=== PATIENT | female | born 1975 | race Caucasian/White ===

== ENCOUNTER 2016-05-06 13:31 | Emergency (ER) | payer OTHER, BC ==
[~2016-05-06] VITALS: Ht 152.4 cm; Wt 68.0 kg
[~2016-05-06 13:31] MED LIST: BACTRIM PO; MTR600X PO; MULT-506 PO; OXYC5TAB PO
[2016-05-06 13:34] VITALS: TEMP 36.7; Ht 152.4 cm; Wt 68.0 kg
[2016-05-06] MEDS ORDERED: SPIR25TA PO (14:10)
[2016-05-06] MEDS ORDERED: ACETAMINOPHEN 500 MG TAB PO STA (14:49)
[2016-05-06] MEDS ORDERED: DIPHTHERIA/TETANUS/PERTUSSIS 0.5 ML SYR/VIAL IM. ONE (15:00)
[2016-05-06 15:37] VITALS: BP 141/95; PULSE 99; O2SAT 98
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
== END 2016-05-06 15:40 | disposition home or self-care (01) ==
LOC: EDBD 13:31 → C.EDD 13:33
DX: S40.811A Abrasion of right upper arm, initial encounter (principal); S40.812A Abrasion of left upper arm, initial encounter; S80.811A Abrasion, right lower leg, initial encounter; S80.812A Abrasion, left lower leg, initial encounter; V43.52XA Car driver injured in collision with other type car in traffic accident, initial encounter; Y92.410 Unspecified street and highway as the place of occurrence of the external cause; Z23 Encounter for immunization

== ENCOUNTER → 2017-02-21 | Outpatient (CLI) | payer BC ==
[~2017-02-21] MED LIST changes: -BACTRIM PO; -MTR600X PO; -OXYC5TAB PO; +SPIR25TA PO
--- NOTE | 2017-02-22 14:09 | MAMMOGRAPHY REPORT ---
BILATERAL FIRST EVER DIGITAL SCREENING MAMMOGRAM TOMOSYNTHESIS WITH CAD: 02/21/2017 CLINICAL HISTORY: Routine screening. Baseline exam. TECHNIQUE: Breast tomosynthesis in addition to standard 2D mammography was performed. Current study was also evaluated with a Computer Aided Detection (CAD) system. COMPARISON: No prior exams were available for comparison. BREAST COMPOSITION: The tissue of both breasts is heterogeneously dense, which may obscure small mas ses. FINDINGS: There is a conspicuous 7 mm nodular asymmetry in the superior posterior right breast, only seen on the MLO view. Although this could represent normal overlapping fibroglandular tissue, as no definite persistent mass is seen on the corresponding tomosynthesis images, additional spot compress ion tomosynthesis, true lateral views and possible ultrasound are recommended. No other suspicious mass, architectural distortion or cluster of microcalcifications is seen bilatera lly. IMPRESSION: ACR BI-RADS CATEGORY 0: INCOMPLETE EVALUATION: NEED ADDITIONAL IMAGING EVALUATION The 7 mm nodular asymmetry in the superior, posterior right breast on the MLO view needs additional e valuation. The patient will be called to schedule an appointment. Approximately 10% of breast cancers are not detected with mammography. A negative mammographic report should not delay biopsy if a clinically suggestive mass is present. Flor Jimenez M.D. ay/:02/21/2017 15:10:28 Personnel Psychologist: Wilmer RICE)([place]), [facility] letter sent: Addl Imaging 0 BI-RADS Code: ACR BI-RADS Category 0: Incomplete Evaluation: Need Additional Imaging Evaluation
== END | disposition home or self-care (01) ==
LOC: C.MAMM 08:36
PROVIDERS: ATTEND Obstetrics & Gynecology
DX: Z12.31 Encounter for screening mammogram for malignant neoplasm of breast (principal); N64.89 Other specified disorders of breast

== ENCOUNTER → 2017-03-08 | Outpatient (CLI) | payer BC, OTHER ==
--- NOTE | 2017-03-08 15:00 | MAMMOGRAPHY REPORT ---
UNILATERAL RIGHT DIGITAL DIAGNOSTIC MAMMOGRAM TOMOSYNTHESIS AND TARGETED RIGHT ULTRASOUND: 03/08/2017 CLINICAL HISTORY: 41-year-old woman called back from baseline screening mammogram for a 7 mm nodular asymmetry in the superior posterior right breast only seen on the MLO view. TECHNIQUE: Spot compression right MLO tomosynthesis and right MLO tomosynthesis views were obtained. COMPARISON: Comparison is made to exam dated: 02/21/2017 mammogram - [facility]. BREAST COMPOSITION: The tissue of the right breast is heterogeneously dense, which may obscure small masses. FINDINGS: The additional tomosynthesis views of the right breast demonstrate effacement of the 7 mm n odular asymmetry seen on the 2-D view from the screening mammogram performed 02/21/2017. No suspicio us mass, architectural distortion or cluster of microcalcifications is currently identified in the vi sualized right breast. Targeted ultrasound was performed through the superior right breast. Heterogeneous echotexture tissu e is seen without a discrete solid or cystic mass. IMPRESSION: ACR BI-RADS CATEGORY 2: BENIGN, TARGETED ULTRASOUND ACR BI-RADS CATEGORY 2: BENIGN Effacement of the 7 mm nodular asymmetry in the superior posterior right breast with additional suppl emental tomosynthesis images, and no suspicious sonographic correlate identified. This most likely r epresented normal overlapping fibroglandular tissue. There is no mammographic or targeted sonographi c evidence of malignancy in the right breast. These results and recommendations were discussed with the patient at the time of the exam. A 1 year screening mammogram is recommended. Approximately 10% of breast cancers are not detected with mammography. A negative mammographic report should not delay biopsy if a clinically suggestive mass is present. Flor Jimenez M.D. ay/:03/08/2017 14:14:18 Proof Machine Operator Supervisor: Magi RICE)([place]), [facility] letter sent: Normal 1/2 BI-RADS Code: ACR BI-RADS Category 2: Benign Ultrasound BI-RADS: ACR BI-RADS Category 2: Benign
== END | disposition home or self-care (01) ==
LOC: C.MAMM 13:33
PROVIDERS: ATTEND Obstetrics & Gynecology
DX: N64.9 Disorder of breast, unspecified (principal)